=== PATIENT | female | born 1995 | race Caucasian/White ===

== ENCOUNTER 2017-08-31 00:04 | Emergency (ER) | payer OTHER ==
[2017-08-31 00:37] VITALS: BP 119/88; PULSE 92; TEMP 98.9; BMI 21.8
--- NOTE | 2017-08-31 01:25 | PDOC ---
History of Present Illness <Rosalba Yates - Last Filed: 08/31/17 02:20> - General History Source: Patient Exam Limitations: No Limitations - History of Present Illness Initial Comments: 08/31/17 03:25 Patient is a 21 year old female with no significant past medical history who presents to the ED with complaints of increased cough that began 5 days ago. Patient reports feeling slightly feverish as well as gradual dizziness and shortness of breath. She reports experiencing slight chest discomfort, stating when she coughs it reproduces a pain within her left ribs. Patient reports experiencing sore throat, decreased appetite, frontal sinus pressure and 1 episode of diarrhea that occured yesterday afternoon. Denies nausea, vomiting. Denies contact with sick individuals, out of state travelling. Denies dysuria, hematuria, constipation. Denies any other symptoms. Allergies: None Social history: No smoking. No alcohol. No illicit drugs. Surgical history: None PMD: Dr. Duggan <John Robles - Last Filed: 08/31/17 03:25> - General Chief Complaint: Cold Symptoms Stated Complaint: COUGH/DIZZINESS Time Seen by Provider: 08/31/17 00:29 Past History - Suicide/Smoking/Psychosocial Hx Smoking History: Never smoked Have you smoked in the past 12 months: No Information on smoking cessation initiated: No Hx Alcohol Use: No Drug/Substance Use Hx: No <Rosalba Yates - Last Filed: 08/31/17 02:20> <John Robles - Last Filed: 08/31/17 03:25> - Past Medical History Allergies/Adverse Reactions: Allergies Allergy/AdvReac Type Severity Reaction Status Date / Time No Known Allergies Allergy Verified 08/31/17 00:33 Home Medications: Ambulatory Orders Acetaminophen [Tylenol] 650 mg PO PRN 08/31/17 Guaifenesin AC [Robitussin AC] 5 ml PO Q6H PRN #60 ml MDD 60 mL 08/31/17 Review of Systems - Review of Systems Able to Perform ROS?: Yes Comments:: 08/31/17 03:25 GENERAL/CONSTITUTIONAL: No fever or chills. No weakness. HEAD, EYES, EARS, NOSE AND THROAT: +Sore throat. No change in vision. No ear pain or discharge. GASTROINTESTINAL: +Diarrhea. No nausea, vomiting, or constipation. GENITOURINARY: No dysuria, frequency, or change in urination. CARDIOVASCULAR: +chest discomfort. +Sob. RESPIRATORY: +Cough. No wheezing, or hemoptysis. MUSCULOSKELETAL: No joint or muscle swelling or pain. No neck or back pain. SKIN: No rash NEUROLOGIC: No headache, vertigo, loss of consciousness, or change in strength/ sensation. ENDOCRINE: No increased thirst. No abnormal weight change. HEMATOLOGIC/LYMPHATIC: No anemia, easy bleeding, or history of blood clots. ALLERGIC/IMMUNOLOGIC: No hives or skin allergy. <John Robles - Last Filed: 08/31/17 03:25> *Physical Exam - Vital Signs Last Vital Signs Temp Pulse Resp BP Pulse Ox 98.9 F 92 H 20 119/88 98 08/31/17 00:34 08/31/17 00:34 08/31/17 00:34 08/31/17 00:34 08/31/17 00:34 <Rosalba Yates - Last Filed: 08/31/17 02:20> - Vital Signs Last Vital Signs Temp Pulse Resp BP Pulse Ox 98.9 F 92 H 20 119/88 98 08/31/17 00:34 08/31/17 00:34 08/31/17 00:34 08/31/17 00:34 08/31/17 00:34 <John Robles - Last Filed: 08/31/17 03:25> ED Treatment Course - ADDITIONAL ORDERS Additional order review: Laboratory Results 08/31/17 01:35 Urine HCG, Qual Negative - Medications Given in the ED: ED Medications Discontinued Medications Generic Name Dose Route Start Last Admin Trade Name Freq PRN Reason Stop Dose Admin Guaifenesin/Codeine Phosphate 10 ml 08/31/17 02:10 08/31/17 02:23 Robitussin Ac - PO 08/31/17 02:11 10 ml ONCE ONE Administration <John Robles - Last Filed: 08/31/17 03:25> *DC/Admit/Observation/Transfer - Discharge Dispostion Admit: No <Rosalba Yates - Last Filed: 08/31/17 02:20> - Attestations Scribe Attestion: 08/31/17 03:25 Documentation prepared by John Robles, acting as medical auditor for Rosalba Yates MD, /DO. <John Robles - Last Filed: 08/31/17 03:25> Diagnosis at time of Disposition: Cough - Discharge Dispostion Disposition: HOME Condition at time of disposition: Stable - Prescriptions Prescriptions: Guaifenesin AC [Robitussin AC] 5 ml PO Q6H PRN #60 ml MDD 60 mL PRN Reason: Cough - Referrals Referrals: Adrienne Storm MD [Primary Care Provider] - - Patient Instructions Printed Discharge Instructions: DI for Viral Upper Respiratory Infection -- Adult - Post Discharge Activity
[2017-08-31] MEDS ORDERED: guaiFENesin/CODEINE 10 ML UNIT-DOSE CUPS PO ONE (02:10)
[2017-08-31] MEDS ORDERED: guaiFENesin/CODEINE 5 ML UNIT-DOSE CUPS PO ONE (02:22)
== END 2017-08-31 02:31 | disposition home or self-care (01) ==
LOC: JER 00:04
DX: J06.9 Acute upper respiratory infection, unspecified (principal); B97.89 Other viral agents as the cause of diseases classified elsewhere
CPT/HCPCS: 71046-TC-FY; 84703; 99282-25

== ENCOUNTER 2018-06-28 13:17 | Emergency (ER) | payer OTHER ==
[2018-06-28 13:24] VITALS: BP 114/69; PULSE 113; TEMP 98.2; BMI 21.6
[2018-06-28] MEDS ORDERED: predniSONE 20 MG TABLET (UD) PO ONE (13:38)
[2018-06-28] MEDS ORDERED: diphenhydrAMINE HCL 25 MG CAPSULE (FP) PO ONE ×2 (13:38→13:41)
[2018-06-28] MEDS ORDERED: RANITIDINE HCL 150 MG TABLET (FP) PO ONE (13:38)
[2018-06-28] MEDS ORDERED: RANITIDINE HCL 150 MG TABLET (FP) ONE (13:41)
[2018-06-28] MEDS ORDERED: predniSONE 20 MG TABLET (UD) ONE (13:42)
--- NOTE | 2018-06-28 13:50 | PDOC ---
History of Present Illness - General Chief Complaint: Allergic Reaction Stated Complaint: Allergic Reaction Time Seen by Provider: 06/28/18 13:25 History Source: Patient, Parent(s) Exam Limitations: No Limitations Past History - Past Medical History Allergies/Adverse Reactions: Allergies Allergy/AdvReac Type Severity Reaction Status Date / Time No Known Allergies Allergy Verified 06/28/18 13:20 Home Medications: Ambulatory Orders Famotidine [Pepcid] 20 mg PO DAILY #5 tablet 06/28/18 Prednisone [Deltasone] 40 mg PO DAILY #10 tablet 06/28/18 COPD: No - Immunization History Immunization Up to Date: Yes - Suicide/Smoking/Psychosocial Hx Smoking History: Never smoked Have you smoked in the past 12 months: No Information on smoking cessation initiated: No Hx Alcohol Use: No Drug/Substance Use Hx: No Substance Use Type: None *Physical Exam - Vital Signs Last Vital Signs Temp Pulse Resp BP Pulse Ox 98.2 F 113 H 18 114/69 100 06/28/18 13:20 06/28/18 13:20 06/28/18 13:20 06/28/18 13:20 06/28/18 13:20 - Physical Exam HEENT: positive: Pharynx Normal, Other (No angioedema noted) Respiratory/Chest: positive: Lungs Clear, Normal Breath Sounds. negative: Respiratory Distress Cardiovascular: positive: Regular Rhythm Gastrointestinal/Abdominal: positive: Soft. negative: Tender Integumentary: positive: Hives, Rash (Generalized urticarial rash throughout body). negative: Mottled, Petechiae, Swelling, Ecchymosis, Bruising Neurologic: positive: Alert, Normal Mood/Affect Moderate Sedation - Procedure Monitoring Vital Signs: Procedure Monitoring Vital Signs Temperature 98.2 F 06/28/18 13:20 Pulse Rate 113 H 06/28/18 13:20 Respiratory Rate 18 06/28/18 13:20 Blood Pressure 114/69 06/28/18 13:20 O2 Sat by Pulse Oximetry (%) 100 06/28/18 13:20 Medical Decision Making - Medical Decision Making 22 y/o F with no sig pmh presents with diffuse, itchy rash that she broke out into yesterday around 6 PM after her mother gave her a drink consisting of water , honey and black pepper to help with a cough patient was having. Patient's mother had given her Claritin 10 mg yesterday x1, but didn't notice much improvement so brought her to ED. Patient has not taken anything for the allergies today. Denies abd pain, n/v/d. PE consistent with allergic urticaria; no angioedema, lungs clear Plan: Prednisone, Zantac, Benadryl 06/28/18 13:33 On reassessment, patient feeling better stable for d/c 06/28/18 14:01 *DC/Admit/Observation/Transfer Diagnosis at time of Disposition: Allergic urticaria - Discharge Dispostion Disposition: HOME Condition at time of disposition: Improved Decision to Admit order: No - Prescriptions Prescriptions: Famotidine [Pepcid] 20 mg PO DAILY #5 tablet Prednisone [Deltasone] 40 mg PO DAILY #10 tablet - Referrals Referrals: Bony Dawn MD [Primary Care Provider] - 3 days - Patient Instructions Printed Discharge Instructions: DI for Hives Additional Instructions: Thank you for choosing [facility]. It was a pleasure taking care of you. You were seen here for allergic reaction Take Prednisone and Pepcid as prescribed Also take Benadryl 50 mg ever 6 hours as needed to help with itching Follow-up with your PCP in 2-3 days. Return to the Emergency Department if your symptoms worsen or persist or have other concerning symptoms. - Post Discharge Activity
== END 2018-06-28 14:09 | disposition home or self-care (01) ==
LOC: JERFT 13:17
DX: L50.0 Allergic urticaria (principal)
CPT/HCPCS: 99281-25

== ENCOUNTER 2018-11-28 14:43 | Emergency (ER) | payer OTHER ==
[2018-11-28 14:47] VITALS: BP 107/62; PULSE 89; TEMP 98.2; BMI 24.0
--- NOTE | 2018-11-28 15:13 | PDOC ---
History of Present Illness - General Chief Complaint: Ear Problem Stated Complaint: Ear Problem Time Seen by Provider: 11/28/18 14:51 - History of Present Illness Initial Comments: 11/28/18 15:08 23 years old no significant past medical history presents to the ED with clogged right ear decreased hearing from right ear Has been using hydrogen peroxide drops with no significant improvement No fever no chills no headache no neck pain Past History - Past Medical History Allergies/Adverse Reactions: Allergies Allergy/AdvReac Type Severity Reaction Status Date / Time No Known Allergies Allergy Verified 11/28/18 14:47 Home Medications: Ambulatory Orders NK [No Known Home Medication] 11/28/18 COPD: No - Immunization History Immunization Up to Date: Yes - Suicide/Smoking/Psychosocial Hx Smoking History: Never smoked Have you smoked in the past 12 months: No Hx Alcohol Use: No Drug/Substance Use Hx: No Substance Use Type: None Review of Systems - Review of Systems Comments:: 11/28/18 15:20 ROS: A complete review of 10 out of 10 review of systems is taken and is negative apart from what is previously mentioned below and in the HPI. *Physical Exam - Vital Signs Last Vital Signs Temp Pulse Resp BP Pulse Ox 98.2 F 89 18 107/62 100 11/28/18 14:44 11/28/18 14:44 11/28/18 14:44 11/28/18 14:44 11/28/18 14:44 - Physical Exam Comments: 11/28/18 15:20 Vitals: Triage Vital signs reviewed General Appearance: no acute distress, well nourished well developed, Head: Atraumatic, Eyes: Pupils equal reactive round, extraocular movement intact Ears: Both years impacted with cerumen right greater than left Cespedes and Rinne test performed patient able to hear tuning fork with conduction through mastoids bilaterally decreased hearing with tuning fork 1 placed outside of right ear Nose: Nares patent bilaterally;no nasal congestion Throat: Posterior oropharynx without erythema, mucous membranes moist, Extremities: Full range of motion to all extremities, no cyanosis, clubbing, or edema Skin: Warm and dry, no rashes or lesions, no rash, no petechiae Psych: normal mood, normal affect Medical Decision Making - Medical Decision Making 11/28/18 15:22 Decreased hearing in right ear secondary to impacted cerumen We'll recommend D Brox and ENT follow-up manually disimpacted as much as possible in the ED repeat evaluation still with remaining cerumen Findings, the need for follow-up, strict return instructions discussed with patient. *DC/Admit/Observation/Transfer Diagnosis at time of Disposition: Cerumen impaction Qualifiers: Laterality: right Qualified Code(s): H61.21 - Impacted cerumen, right ear - Discharge Dispostion Disposition: HOME Decision to Admit order: No - Referrals Referrals: Bony Dawn MD [Primary Care Provider] - Aidan Espinoza MD [Staff Physician] - - Patient Instructions Printed Discharge Instructions: Cerumen Impaction Additional Instructions: Purchase xlut-avm-aqlvyav Debrox. Use as directed on package. It is very important that you follow-up with on saturday or saturday. Return to the emergency department for any severe worsening symptoms or for any concerns. - Post Discharge Activity
== END 2018-11-28 15:25 | disposition home or self-care (01) ==
LOC: JERFT 14:43
DX: H61.21 Impacted cerumen, right ear (principal)
CPT/HCPCS: 99281-25

== ENCOUNTER 2022-01-12 21:57 | Emergency (ER) | payer OTHER ==
[2022-01-12 22:08] VITALS: BP 102/69; PULSE 81; RESP 18; TEMP 97; BMI 20.2
[2022-01-12] MEDS ORDERED: ACETAMINOPHEN 325 MG TABLET (FP) PO ONE (23:05)
[2022-01-12] MEDS ORDERED: ACETAMINOPHEN 325 MG TABLET (FP) ONE (23:15)
== END 2022-01-13 00:01 | disposition home or self-care (01) ==
LOC: JER 21:57
DX: R07.9 Chest pain, unspecified (principal)
CPT/HCPCS: 84703; 93005; 93010; 99284-25

== ENCOUNTER 2022-03-23 14:57 | Emergency (ER) | payer OTHER ==
[2022-03-23 15:21] VITALS: BP 118/70; PULSE 102; RESP 16; TEMP 98.2; BMI 22.8
[2022-03-23 16:57] LABS: BASO % 0.7 % (0-2.0); EOS % 1.3 % (0-4.5); HEMATOCRIT 38.1 % (32.4-45.2); HEMOGLOBIN 12.6 GM/dL (10.7-15.3); LYMPH % 33.1 % (8-40); MCH 28.2 pg (25.7-33.7); MCHC 33.1 g/dl (32.0-36.0); MEAN CELL VOLUME 85.1 fl (80-96); MEAN PLT VOLUME 8.3 fl (7.5-11.1); MONO % 3.9 % (3.8-10.2); PLATELET COUNT 273 10^3/uL (134-434); RBC 4.47 M/mm3 (3.60-5.2); RDW 15.1 % (11.6-15.6); WHITE BLOOD COUNT 7.7 K/mm3 (4.0-10.0)
[2022-03-23 17:02] LABS: EPI CELLS >36 /uL (0-25.1); HYALINE CASTS 1 /uL (0-3.1); PH,URINE 5.5 (5.0-8.0); URINE APPEARANCE CLOUDY; URINE BILIRUBIN NEGATIVE (NEGATIVE); URINE COLOR YELLOW; URINE GLUCOSE (UA) NEGATIVE (NEGATIVE); URINE KETONE NEGATIVE (NEGATIVE); URINE LEUK ESTERASE 1+ (NEGATIVE); URINE NITRITE NEGATIVE (NEGATIVE); URINE PROTEIN NEGATIVE (NEGATIVE); URINE RBC 4 /uL (0-23.9); URINE UROBILINOGEN 0.2 mg/dL (0.2-1.0); URINE WBC 19 /uL (0-25.8)
[2022-03-23 17:17] LABS: CALCIUM 9.5 mg/dL (8.5-10.1)
[2022-03-23 17:18] LABS: BLOOD UREA NITROGEN 8.5 mg/dL (7-18)
[2022-03-23 17:20] LABS: CREATININE 0.5 mg/dL (0.55-1.3)
[2022-03-23 17:22] LABS: BILIRUBIN,TOTAL 0.2 mg/dL (0.2-1); TOT PROT 7.4 g/dl (6.4-8.2)
== END 2022-03-23 19:25 | disposition home or self-care (01) ==
LOC: JER 14:57 → JERFT 14:57
DX: O20.8 Other hemorrhage in early pregnancy (principal)
CPT/HCPCS: 36415; 76817-TC; 80053; 81003; 84702; 85025; 86850; 86900; 86901; 87086; 99284-25

== ENCOUNTER 2022-03-27 12:37 | Emergency (ER) | payer OTHER ==
[2022-03-27 12:45] VITALS: BP 106/72; PULSE 78; RESP 19; TEMP 98.6; BMI 30.2
== END 2022-03-27 16:46 | disposition home or self-care (01) ==
LOC: JERFT 12:37 → JER 12:37 → JERFT 16:46
DX: O26.851 Spotting complicating pregnancy, first trimester (principal); Z3A.01 Less than 8 weeks gestation of pregnancy
CPT/HCPCS: 36415; 76830-TC; 84702; 99284-25

== ENCOUNTER 2023-03-04 06:33 | Emergency (ER) | payer OTHER ==
[2023-03-04 06:51] VITALS: BMI 25.4
[2023-03-04 07:46] VITALS: RESP 18
[2023-03-04] MEDS ORDERED: ELECTROLYTE-148 SOLN 500 ML IV ONE ×2 (08:00→08:30)
[2023-03-04] MEDS ORDERED: ONDANSETRON 4 MG/2 ML VIAL ONE (09:08)
[2023-03-04] MEDS ORDERED: ONDANSETRON 4 MG/2 ML VIAL IVPB ONE (09:30)
[2023-03-04] MEDS ORDERED: guaiFENesin 200 MG/10 ML 10 ML UNIT-DOSE CUPS PO ONE (10:01)
[2023-03-04 12:30] VITALS: BP 107/58; PULSE 100; TEMP 98.3
[2023-03-20] MEDS ORDERED: FENTANYL CITRATE/PF 50 MCG/ML VIAL ONE (02:04)
[2023-03-20] MEDS ORDERED: BUPIVACAINE HCL/PF 0.25% (2.5MG/ML) 10 ML VIAL ONE (02:05)
[2023-03-20] MEDS ORDERED: LIDO 2%/EPI 1:200000 PRESRVFRE (20 ML SDVIAL) ONE (10:53)
== END 2023-03-04 14:09 | disposition home or self-care (01) ==
LOC: JER 06:33 → JERFT 06:33
PROC: 3E033GC Introduction of Other Therapeutic Substance into Peripheral Vein, Percutaneous Approach (ICD-10-PCS; principal; 2023-03-04)
PROC: 3E033GC Introduction of Other Therapeutic Substance into Peripheral Vein, Percutaneous Approach (ICD-10-PCS; 2023-03-04)
PROC: 3E033GC Introduction of Other Therapeutic Substance into Peripheral Vein, Percutaneous Approach (ICD-10-PCS; 2023-03-04)
PROC: 3E033GC Introduction of Other Therapeutic Substance into Peripheral Vein, Percutaneous Approach (ICD-10-PCS; 2023-03-04)
DX: O26.893 Other specified pregnancy related conditions, third trimester (principal); R05.9 Cough, unspecified; R09.81 Nasal congestion; O21.9 Vomiting of pregnancy, unspecified; O99.513 Diseases of the respiratory system complicating pregnancy, third trimester; J06.9 Acute upper respiratory infection, unspecified; B97.89 Other viral agents as the cause of diseases classified elsewhere; Z20.822 Contact with and (suspected) exposure to COVID-19; Z3A.36 36 weeks gestation of pregnancy
CPT/HCPCS: 0241U-QW; 76815; 99284-25

== ENCOUNTER 2023-03-19 06:30 | Inpatient (IN) | payer OTHER ==
[2023-03-19] MEDS ORDERED: AMPICILLIN - 2 GM in SODIUM CHLORIDE 100 ML IVPB ONE (07:54)
[2023-03-19] MEDS ORDERED: AMPICILLIN SODIUM 2 GM VIAL ONE ×2 (08:22→12:34)
[2023-03-19] MEDS: ELECTROLYTE-148 SOLN 1,000 ML IV SCH ×3 (08:40→19:45)
[2023-03-19 09:16] LABS: BASO % 0.8 % (0-2.0); EOS % 0.3 % (0-4.5); HEMATOCRIT 34.9 % (32.4-45.2); HEMOGLOBIN 11.8 GM/dL (10.7-15.3); LYMPH % 46.9 % (8-40); MCH 28.3 pg (25.7-33.7); MCHC 33.9 g/dl (32.0-36.0); MEAN CELL VOLUME 83.4 fl (80-96); MEAN PLT VOLUME 9.2 fl (7.5-11.1); MONO % 3.9 % (3.8-10.2); NEUT % 48.1 % (42.8-82.8); PLATELET COUNT 240 10^3/uL (134-434); RBC 4.19 M/mm3 (3.60-5.2); RDW 14.1 % (11.6-15.6); WHITE BLOOD COUNT 11.1 K/mm3 (4.0-10.0)
[2023-03-19 09:23] LABS: INR 0.97 (0.83-1.09); PROTHROMBIN TIME (PATIENT) 11.3 SEC (9.7-13.0)
[2023-03-19 09:26] LABS: ACTIVATED PTT 30.4 SECONDS (25.2-36.5)
[2023-03-19 09:33] VITALS: BMI 25.4
[2023-03-19 09:41] LABS: POTASSIUM 4.1 mmol/L (3.5-5.1)
[2023-03-19 09:42] LABS: CALCIUM 8.7 mg/dL (8.5-10.1)
[2023-03-19 09:43] LABS: BLOOD UREA NITROGEN 8.7 mg/dL (7-18)
[2023-03-19 09:46] LABS: CREATININE 0.7 mg/dL (0.55-1.3)
[2023-03-19] MEDS ORDERED: FENTANYL/BUPIVACAINE/NS/PF - PCEA - 50 ML DISP.SYRIN EP ONE ×3 (10:16→19:19)
[2023-03-19] MEDS: FENTANYL/BUPIVACAINE/NS/PF - PCEA - 50 ML DISP.SYRIN EP SCH ×3 (10:45→19:30)
[2023-03-19] MEDS ORDERED: NALOXONE HCL 0.4 MG/ML VIAL IVPUSH PRN (11:07)
[2023-03-19] MEDS ORDERED: AMPICILLIN SODIUM 1 GM VIAL ONE ×4 (12:39→23:53)
[2023-03-19] MEDS: AMPICILLIN - 1 GM in SODIUM CHLORIDE 100 ML IVPB SCH ×3 (12:45→19:50)
[2023-03-19] MEDS: OXYTOCIN 30 UNITS in 0.9% NS 30 UNIT/500 ML INFUS.BAG IVPB SCH (13:18)
[2023-03-19 13:45] LABS: POC NITRAZINE POS
[2023-03-19 13:46] LABS: POC NITRAZINE POS
[2023-03-19] MEDS ORDERED: OXYTOCIN 20 UNITS in 0.9% NS 20 UNIT/1,000 ML INFUS.BAG IV ONE (19:29)
[2023-03-19] MEDS ORDERED: ONDANSETRON 4 MG/2 ML VIAL ONE (23:53)
[2023-03-20] MEDS ORDERED: FENTANYL/BUPIVACAINE/NS/PF - PCEA - 50 ML DISP.SYRIN EP ONE ×4 (00:19→09:31)
[2023-03-20] MEDS ORDERED: ONDANSETRON 4 MG/2 ML VIAL IVPUSH PRN (00:35)
[2023-03-20] MEDS ORDERED: AMPICILLIN SODIUM 1 GM VIAL ONE ×2 (04:38→08:57)
[2023-03-20] MEDS: ELECTROLYTE-148 SOLN 1,000 ML IV SCH ×2 (04:40→14:27)
[2023-03-20] MEDS: AMPICILLIN - 1 GM in SODIUM CHLORIDE 100 ML IVPB SCH ×4 (04:40→14:27)
[2023-03-20] MEDS: FENTANYL/BUPIVACAINE/NS/PF - PCEA - 50 ML DISP.SYRIN EP SCH ×4 (05:30→13:50)
[2023-03-20] MEDS ORDERED: CITRIC ACID/SODIUM CITRATE 30 ML UNIT-DOSE CUP PO ONE (10:30)
[2023-03-20] MEDS ORDERED: IBUPROFEN 800 MG/8 ML IJ IVPB PRN (10:34)
[2023-03-20] MEDS ORDERED: ACETAMINOPHEN 325 MG TABLET (FP) PO PRN (10:34)
[2023-03-20] MEDS ORDERED: FENTANYL CITRATE/PF 50 MCG/ML VIAL ONE (11:29)
[2023-03-20] MEDS ORDERED: ONDANSETRON 4 MG/2 ML VIAL ONE (11:32)
[2023-03-20] MEDS ORDERED: DEXAMETHASONE SOD PHOSPHATE 4 MG/1 ML VIAL ONE (11:32)
[2023-03-20] MEDS ORDERED: METOCLOPRAMIDE HCL INJECTION 10 MG/2 ML VIAL ONE (11:32)
[2023-03-20] MEDS ORDERED: ceFAZolin SODIUM 1 GM VIAL ONE ×2 (11:33)
[2023-03-20] MEDS ORDERED: morphine SULFATE/PF 1 MG/2 ML (2cc Syringe - QUVA) ONE (11:33)
[2023-03-20] MEDS ORDERED: morphine SULFATE/PF 1 MG/2 ML (2cc Syringe - QUVA) EP ONE (12:18)
[2023-03-20] MEDS ORDERED: OXYTOCIN 20 UNITS in 0.9% NS 20 UNIT/1,000 ML INFUS.BAG IV ONE (12:18)
[2023-03-20] MEDS: OXYTOCIN 20 UNITS in 0.9% NS 20 UNIT/1,000 ML INFUS.BAG IV SCH ×2 (12:23→20:16)
[2023-03-20] MEDS: OXYTOCIN 30 UNITS in 0.9% NS 30 UNIT/500 ML INFUS.BAG IVPB SCH (13:53)
[2023-03-20] MEDS ORDERED: METHYLERGONOVINE MALEATE 0.2 MG/1 ML AMP IM ONE (14:01)
[2023-03-21] MEDS: oxyCODONE HCL 5 MG TABLET PO PRN ×2 (08:04→18:20)
[2023-03-21 08:43] LABS: BASO % 0.3 % (0-2.0); EOS % 0.4 % (0-4.5); HEMATOCRIT 28.6 % (32.4-45.2); HEMOGLOBIN 9.6 GM/dL (10.7-15.3); LYMPH % 23.1 % (8-40); MCHC 33.6 g/dl (32.0-36.0); MEAN CELL VOLUME 83.3 fl (80-96); MEAN PLT VOLUME 8.7 fl (7.5-11.1); MONO % 4.2 % (3.8-10.2); PLATELET COUNT 183 10^3/uL (134-434); RBC 3.44 M/mm3 (3.60-5.2); RDW 14.6 % (11.6-15.6); WHITE BLOOD COUNT 13.7 K/mm3 (4.0-10.0)
[2023-03-21] MEDS ORDERED: DIPHTH,PERTUSS(ACELL),TET 0.5 ML DISP.SYRIN IM ONE (10:00)
[2023-03-21] MEDS ORDERED: BISACODYL 10 MG SUPP.RECT RC PRN (10:34)
[2023-03-21] MEDS: SIMETHICONE 80 MG TAB.CHEW (FP) PO PRN (22:18)
[2023-03-21] MEDS: IBUPROFEN 600 MG TABLET (FP) PO PRN (22:19)
[2023-03-22] MEDS: IBUPROFEN 600 MG TABLET (FP) PO PRN (19:46)
[2023-03-22] MEDS: SIMETHICONE 80 MG TAB.CHEW (FP) PO PRN (19:47)
[2023-03-23 07:21] LABS: BASO % 0.8 % (0-2.0); EOS % 1.4 % (0-4.5); HEMATOCRIT 27.6 % (32.4-45.2); HEMOGLOBIN 9.1 GM/dL (10.7-15.3); LYMPH % 41.3 % (8-40); MCH 27.8 pg (25.7-33.7); MCHC 32.8 g/dl (32.0-36.0); MEAN CELL VOLUME 84.7 fl (80-96); MONO % 3.9 % (3.8-10.2); NEUT % 52.6 % (42.8-82.8); PLATELET COUNT 200 10^3/uL (134-434); RBC 3.26 M/mm3 (3.60-5.2); RDW 13.7 % (11.6-15.6); WHITE BLOOD COUNT 11.2 K/mm3 (4.0-10.0)
[2023-03-23 11:34] VITALS: BP 100/61; PULSE 86; RESP 17; TEMP 97.5
== END 2023-03-23 13:30 | disposition home or self-care (01) | DRG 540 ==
LOC: JDEL 06:30 → JLDR 07:45 → J3W 03-20 15:25
PROVIDERS: ADMIT Student in an Organized Health Care Education/Training Program; ATTEND Student in an Organized Health Care Education/Training Program
PROC: 10D00Z1 Extraction of Products of Conception, Low, Open Approach (ICD-10-PCS; principal; 2023-03-20)
DX: O62.0 Primary inadequate contractions (principal); O63.9 Long labor, unspecified; Z3A.38 38 weeks gestation of pregnancy; Z37.0 Single live birth
CPT/HCPCS: 36415; 59025; 80048; 83986-QW; 85025; 85610; 85730; 86780; 86850; 86900; 86901; 88307-TC; 90715

== ENCOUNTER 2023-08-27 15:35 | Emergency (ER) | payer OTHER ==
[2023-08-27 15:40] VITALS: RESP 20; BMI 33.5
[2023-08-27] MEDS ORDERED: ACETAMINOPHEN 500 MG TABLET (FP) ONE (16:51)
[2023-08-27] MEDS: ACETAMINOPHEN 325 MG TABLET (FP) PO ONE (16:57)
[2023-08-27 18:06] VITALS: BP 96/66; PULSE 108; TEMP 99
== END 2023-08-27 18:07 | disposition home or self-care (01) ==
LOC: JERFT 15:35
DX: R50.9 Fever, unspecified (principal); R11.10 Vomiting, unspecified; J10.1 Influenza due to other identified influenza virus with other respiratory manifestations; R05.9 Cough, unspecified; R52 Pain, unspecified; Z20.822 Contact with and (suspected) exposure to COVID-19
CPT/HCPCS: 0241U-QW; 99283-25

== ENCOUNTER 2023-11-20 13:25 | Observation (INO) | payer OTHER ==
[2023-11-20 13:31] VITALS: BMI 22.6
[2023-11-20 15:04] LABS: BASO % 1.2 % (0-2.0); EOS % 1.3 % (0-4.5); HEMOGLOBIN 10.7 GM/dL (10.7-15.3); LYMPH % 24.1 % (8-40); MCH 28.6 pg (25.7-33.7); MCHC 33.5 g/dl (32.0-36.0); MEAN CELL VOLUME 85.5 fl (80-96); MEAN PLT VOLUME 8.5 fl (7.5-11.1); MONO % 4.9 % (3.8-10.2); NEUT % 68.5 % (42.8-82.8); PLATELET COUNT 315 10^3/uL (134-434); RBC 3.74 M/mm3 (3.60-5.2); RDW 14.1 % (11.6-15.6); WHITE BLOOD COUNT 10.4 K/mm3 (4.0-10.0)
[2023-11-20 15:29] LABS: POTASSIUM 4.3 mmol/L (3.5-5.1)
[2023-11-20 15:31] LABS: CALCIUM 8.9 mg/dL (8.5-10.1)
[2023-11-20 15:32] LABS: ALBUMIN 2.8 g/dl (3.4-5.0); BLOOD UREA NITROGEN 10.4 mg/dL (7-18)
[2023-11-20 15:35] LABS: CREATININE 0.5 mg/dL (0.55-1.3)
[2023-11-20 15:37] LABS: BILIRUBIN,TOTAL 0.2 mg/dL (0.2-1); TOT PROT 6.6 g/dl (6.4-8.2)
[2023-11-20] MEDS ORDERED: ONDANSETRON 4 MG/2 ML VIAL ONE (17:16)
[2023-11-20] MEDS: ONDANSETRON 4 MG/2 ML VIAL IVPUSH ONE (17:26)
[2023-11-20] MEDS: DEXTROSE 5%-0.45% SALINE 1,000 ML IV SCH (20:21)
[2023-11-21] MEDS ORDERED: guaiFENesin 200 MG/10 ML 10 ML UNIT-DOSE CUPS PO PRN (00:06)
[2023-11-21] MEDS: MINERAL OIL ENEMA 133 ML ENEMA RC ONE ×2 (00:27→05:02)
[2023-11-21] MEDS ORDERED: MAGNESIUM CITRATE 300 ML BOTTLE ONE (00:31)
[2023-11-21] MEDS: MAGNESIUM CITRATE 300 ML BOTTLE PO ONE (00:41)
[2023-11-21 00:47] LABS: EPI CELLS >36 /uL (0-25.1); HYALINE CASTS 31 /uL (0-3.1); PH,URINE 6.5 (5.0-8.0); URINE APPEARANCE TURBID; URINE BACTERIA 4154 /uL (0-1359); URINE BILIRUBIN NEGATIVE (NEGATIVE); URINE COLOR DK YELLOW; URINE GLUCOSE (UA) NEGATIVE (NEGATIVE); URINE KETONE 2+ (NEGATIVE); URINE LEUK ESTERASE 3+ (NEGATIVE); URINE NITRITE NEGATIVE (NEGATIVE); URINE PROTEIN 1+ (NEGATIVE); URINE RBC 13 /uL (0-23.9); URINE WBC 476 /uL (0-25.8)
[2023-11-21 00:52] LABS: COCAINE, UR NEGATIVE (NEGATIVE); METHADONE, UR NEGATIVE (NEGATIVE); URINE AMPHETAMINES NEGATIVE (NEGATIVE); URINE BENZODIAZEPINES NEGATIVE (NEGATIVE)
[2023-11-21 00:53] LABS: PHENCYCLIDINE,URINE NEGATIVE (NEGATIVE); URINE BARBITURATES NEGATIVE (NEGATIVE)
[2023-11-21 00:54] LABS: OPIATES, URI NEGATIVE (NEGATIVE)
[2023-11-21] MEDS: PHENYLEPHRINE HCL/COCOA BUTTER 1 EACH SUPP.RECT RC ONE (01:08)
[2023-11-21] MEDS ORDERED: POLYETHYLENE GLYCOL (HEALTHYLAX) 3350 17 GM PACKET ONE ×3 (01:13→22:28)
[2023-11-21] MEDS: POLYETHYLENE GLYCOL (HEALTHYLAX) 3350 17 GM PACKET PO ONE (01:20)
[2023-11-21] MEDS: SODIUM CHLORIDE 1,000 ML IV SCH (01:20)
[2023-11-21] MEDS ORDERED: CEFTRIAXONE 1 GM/50 ML BAG ONE (04:52)
[2023-11-21] MEDS: CEFTRIAXONE 1 GM in DEXTROSE 5%-WATER - 50 ML IVPB ONE (05:02)
[2023-11-21] MEDS ORDERED: LEVALBUTEROL HCL 0.31 MG/3 ML VIAL.NEB IH ONE ×2 (06:43→08:19)
[2023-11-21] MEDS ORDERED: methylPREDNISolone NA SUCC 40 MG/1 ML VIAL ONE (06:43)
[2023-11-21] MEDS: methylPREDNISolone NA SUCC 40 MG/1 ML VIAL IVPUSH ONE (06:52)
[2023-11-21] MEDS: LEVALBUTEROL HCL 0.31 MG/3 ML VIAL.NEB IH ONE (06:53)
[2023-11-21 07:21] LABS: HEMATOCRIT 27.1 % (32.4-45.2); HEMOGLOBIN 9.1 GM/dL (10.7-15.3); MCH 28.9 pg (25.7-33.7); MCHC 33.4 g/dl (32.0-36.0); MEAN CELL VOLUME 86.5 fl (80-96); MEAN PLT VOLUME 8.7 fl (7.5-11.1); PLATELET COUNT 268 10^3/uL (134-434); RBC 3.13 M/mm3 (3.60-5.2); RDW 13.7 % (11.6-15.6); WHITE BLOOD COUNT 9.8 K/mm3 (4.0-10.0)
[2023-11-21 07:29] LABS: POTASSIUM 3.5 mmol/L (3.5-5.1)
[2023-11-21 07:31] LABS: BLOOD UREA NITROGEN 9.1 mg/dL (7-18); CALCIUM 8.1 mg/dL (8.5-10.1); MAGNESIUM 1.8 mg/dL (1.8-2.4)
[2023-11-21 07:34] LABS: PHOSPHOROUS 3.5 mg/dL (2.5-4.9)
[2023-11-21 07:35] LABS: CREATININE 0.5 mg/dL (0.55-1.3)
[2023-11-21] MEDS: LEVALBUTEROL HCL 0.31 MG/3 ML VIAL.NEB IH SCH (08:20)
[2023-11-21] MEDS: MAG HYDROX/AL HYDROX/SIMETH 30 ML UNIT-DOSE CUP PO ONE (09:28)
[2023-11-21] MEDS: FAMOTIDINE 20 MG/50 ML IVPB 20 MG/50 ML MG IVPB ONE (09:28)
[2023-11-21] MEDS ORDERED: FAMOTIDINE 20 MG/50 ML IVPB 20 MG/50 ML MG IVPB ONE (09:28)
[2023-11-21] MEDS ORDERED: MAG HYDROX/AL HYDROX/SIMETH 30 ML UNIT-DOSE CUP ONE (09:28)
[2023-11-21] MEDS ORDERED: ACETAMINOPHEN INJECTION 100 ML IVPB ONE ×2 (09:46→21:45)
[2023-11-21] MEDS: ACETAMINOPHEN 1000 MG/100 ML BAG IVPB PRN (09:46)
[2023-11-21] MEDS ORDERED: FOLIC ACID 1 MG TABLET (FP) ONE (11:23)
[2023-11-21] MEDS: FOLIC ACID 1 MG TABLET (FP) PO SCH (11:26)
[2023-11-21] MEDS: POLYETHYLENE GLYCOL (HEALTHYLAX) 3350 17 GM PACKET PO SCH (11:27)
[2023-11-21] MEDS: PRENATAL VITAMINS W/ FOLIC ACID TABLET (FP) PO SCH (11:27)
[2023-11-21] MEDS: PHENYLEPHRINE HCL/COCOA BUTTER 1 EACH SUPP.RECT RC SCH (12:51)
[2023-11-21] MEDS ORDERED: HYDROCORTISONE 2.5% TOPICAL CREAM 30 GM TUBE PR SCH (13:00)
[2023-11-21] MEDS: methylPREDNISolone NA SUCC 40 MG/1 ML VIAL IVPUSH SCH (14:50)
[2023-11-21] MEDS ORDERED: PANTOPRAZOLE SODIUM 40 MG VIAL ONE (15:05)
[2023-11-21] MEDS: PANTOPRAZOLE SODIUM 40 MG VIAL IVPUSH SCH (15:05)
[2023-11-21] MEDS: PANTOPRAZOLE 20 MG TABLET PO SCH (15:23)
[2023-11-21] MEDS ORDERED: ONDANSETRON 4 MG/2 ML VIAL ONE (21:45)
[2023-11-21] MEDS: ONDANSETRON 4 MG/2 ML VIAL IVPUSH PRN (21:50)
[2023-11-22] MEDS ORDERED: ONDANSETRON *ODT* 4 MG TABLET SL PRN (10:07)
[2023-11-22] MEDS ORDERED: ONDANSETRON 4 MG/2 ML VIAL IVPUSH PRN (10:08)
[2023-11-22] MEDS: CEFTRIAXONE 1 GM in DEXTROSE 5%-WATER - 50 ML IVPB SCH (10:19)
[2023-11-22] MEDS ORDERED: CALCIUM CARBONATE 650 MG TABLET PO PRN (12:00)
[2023-11-22] MEDS ORDERED: HYDROCORTISONE ACETATE 25 MG/SUPP.RECT RC PRN ×2 (13:10→13:53)
[2023-11-22] MEDS: HYDROCORTISONE 2.5% TOPICAL CREAM 30 GM TUBE RC SCH (14:06)
[2023-11-22 15:43] LABS: HEMATOCRIT 24.8 % (32.4-45.2); MCH 27.7 pg (25.7-33.7); MCHC 32.4 g/dl (32.0-36.0); MEAN CELL VOLUME 85.5 fl (80-96); MEAN PLT VOLUME 8.6 fl (7.5-11.1); PLATELET COUNT 261 10^3/uL (134-434); RDW 13.9 % (11.6-15.6); WHITE BLOOD COUNT 9.6 K/mm3 (4.0-10.0)
[2023-11-22 16:09] LABS: POTASSIUM 3.9 mmol/L (3.5-5.1)
[2023-11-22 16:10] LABS: CALCIUM 8.2 mg/dL (8.5-10.1)
[2023-11-22 16:11] LABS: BLOOD UREA NITROGEN 3.8 mg/dL (7-18)
[2023-11-22 16:14] LABS: CREATININE 0.5 mg/dL (0.55-1.3)
[2023-11-22] MEDS ORDERED: WITCH HAZEL 50% (TUCKS) 40 PAD/JAR PAD TP PRN (17:02)
[2023-11-22] MEDS: HYDROCORTISONE 1% TOPICAL CREAM 30 GM TUBE TP PRN (17:24)
[2023-11-23 08:55] LABS: POTASSIUM 3.8 mmol/L (3.5-5.1)
[2023-11-23 08:59] LABS: CALCIUM 7.9 mg/dL (8.5-10.1)
[2023-11-23 09:03] LABS: BASO % 0.4 % (0-2.0); CREATININE 0.4 mg/dL (0.55-1.3); EOS % 1.8 % (0-4.5); HEMATOCRIT 23.8 % (32.4-45.2); HEMOGLOBIN 7.9 GM/dL (10.7-15.3); LYMPH % 28.8 % (8-40); MCH 28.4 pg (25.7-33.7); MCHC 33.3 g/dl (32.0-36.0); MEAN CELL VOLUME 85.2 fl (80-96); MEAN PLT VOLUME 8.3 fl (7.5-11.1); MONO % 4.5 % (3.8-10.2); NEUT % 64.5 % (42.8-82.8); PLATELET COUNT 252 10^3/uL (134-434); RBC 2.79 M/mm3 (3.60-5.2); RDW 13.9 % (11.6-15.6); WHITE BLOOD COUNT 8.1 K/mm3 (4.0-10.0)
[2023-11-23] MEDS: ALBUTEROL SO4 2.5/IPRATROPIUM 0.5 INH SOL 3 ML VIAL.NEB. NEB SCH (12:05)
[2023-11-23 15:45] LABS: HEMATOCRIT 26.2 % (32.4-45.2); HEMOGLOBIN 8.7 GM/dL (10.7-15.3); MCH 28.3 pg (25.7-33.7); MCHC 33.3 g/dl (32.0-36.0); MEAN CELL VOLUME 84.9 fl (80-96); MEAN PLT VOLUME 8.9 fl (7.5-11.1); PLATELET COUNT 290 10^3/uL (134-434); RBC 3.09 M/mm3 (3.60-5.2); RDW 13.4 % (11.6-15.6); WHITE BLOOD COUNT 11.4 K/mm3 (4.0-10.0)
[2023-11-23 15:46] VITALS: RESP 18
[2023-11-23 18:29] VITALS: BP 99/57; PULSE 121; TEMP 99
[2023-11-25 23:10] LABS: BORDETELLA PERTUSSIS IG-M <1.0 index (0.0-0.9); PERTUSSIS TOXIN IGA <1.0 index (0.0-0.9); PERTUSSIS TOXIN IGG 1.51 index (0.00-0.94)
== END 2023-11-23 19:42 | disposition home or self-care (01) ==
LOC: JER 13:25 → JERBED 20:46 → J7W 11-22 00:03
PROVIDERS: ADMIT Internal Medicine; ATTEND Nurse Practitioner
PROC: 3E033NZ Introduction of Analgesics, Hypnotics, Sedatives into Peripheral Vein, Percutaneous Approach (ICD-10-PCS; principal; 2023-11-20)
PROC: 3E0F7GC Introduction of Other Therapeutic Substance into Respiratory Tract, Via Natural or Artificial Opening (ICD-10-PCS; 2023-11-20)
PROC: 3E03329 Introduction of Other Anti-infective into Peripheral Vein, Percutaneous Approach (ICD-10-PCS; 2023-11-20)
PROC: 3E033GC Introduction of Other Therapeutic Substance into Peripheral Vein, Percutaneous Approach (ICD-10-PCS; 2023-11-20)
DX: O21.8 Other vomiting complicating pregnancy (principal); N39.0 Urinary tract infection, site not specified; O23.42 Unspecified infection of urinary tract in pregnancy, second trimester; O22.42 Hemorrhoids in pregnancy, second trimester; Z3A.20 20 weeks gestation of pregnancy; J30.9 Allergic rhinitis, unspecified; K62.5 Hemorrhage of anus and rectum; K59.00 Constipation, unspecified
CPT/HCPCS: 0241U-QW; 36415; 71046-TC-FY; 76705-TC; 76815-TC; 80048; 80053; 80307; 81003; 83735; 84100; 85025; 85027; 86615; 87070; 87077; 87086; 87205; 93005; 93010; 94640; 96365; 96366; 96367; 96375; 96376; 99285-25; G0378; J0131

== ENCOUNTER 2023-12-13 19:59 | Emergency (ER) | payer OTHER ==
[2023-12-13 20:12] VITALS: BP 104/62; PULSE 117; RESP 26; TEMP 98.4; BMI 24.4
[2023-12-13] MEDS: LACTATED RINGERS SOLUTION 1000 ML INFUS.BAG IV ONE (21:21)
[2023-12-13 21:27] LABS: BASO % 0.7 % (0-2.0); EOS % 1.4 % (0-4.5); HEMATOCRIT 25.6 % (32.4-45.2); HEMOGLOBIN 8.4 GM/dL (10.7-15.3); LYMPH % 29.7 % (8-40); MCH 27.4 pg (25.7-33.7); MCHC 32.8 g/dl (32.0-36.0); MEAN CELL VOLUME 83.5 fl (80-96); MEAN PLT VOLUME 9.4 fl (7.5-11.1); MONO % 5.7 % (3.8-10.2); NEUT % 62.5 % (42.8-82.8); PLATELET COUNT 260 10^3/uL (134-434); RBC 3.06 M/mm3 (3.60-5.2); RDW 13.3 % (11.6-15.6); WHITE BLOOD COUNT 10.2 K/mm3 (4.0-10.0)
[2023-12-13 22:05] LABS: CHLORIDE 106 mmol/L (98-107); POTASSIUM 3.8 mmol/L (3.5-5.1); SODIUM 136 mmol/L (136-145)
[2023-12-13 22:07] LABS: ALBUMIN 2.6 g/dl (3.4-5.0); ANION GAP 8 mmol/L (4-13); BLOOD UREA NITROGEN 10.8 mg/dL (7-18); CALCIUM 8.5 mg/dL (8.5-10.1); CO2 23 mmol/L (21-32); GLUCOSE,RANDOM 71 mg/dL (74-106)
[2023-12-13 22:10] LABS: CREATININE 0.5 mg/dL (0.55-1.3); SGOT/AST 15 U/L (15-37); SGPT/ALT 11 U/L (13-61)
[2023-12-13 22:12] LABS: BILIRUBIN,TOTAL < 0.1 mg/dL (0.2-1)
[2023-12-13 22:13] LABS: ALK PHOS 90 U/L (45-117)
[2023-12-13 23:18] LABS: EPI CELLS >36 /uL (0-25.1); HYALINE CASTS 3 /uL (0-3.1); URINE APPEARANCE CLOUDY; URINE BACTERIA 699 /uL (0-1359); URINE BILIRUBIN NEGATIVE (NEGATIVE); URINE COLOR YELLOW; URINE GLUCOSE (UA) NEGATIVE (NEGATIVE); URINE KETONE 2+ (NEGATIVE); URINE LEUK ESTERASE 2+ (NEGATIVE); URINE NITRITE NEGATIVE (NEGATIVE); URINE PROTEIN TRACE (NEGATIVE); URINE RBC 8 /uL (0-23.9); URINE UROBILINOGEN 0.2 mg/dL (0.2-1.0); URINE WBC 228 /uL (0-25.8)
[2023-12-13] MEDS ORDERED: CEFTRIAXONE 1 GM/50 ML BAG ONE (23:41)
[2023-12-13] MEDS: CEFTRIAXONE 1 GM in DEXTROSE 5%-WATER - 50 ML IVPB ONE (23:47)
[2023-12-13] MEDS: SODIUM CHLORIDE 500 ML IV STA (23:48)
== END 2023-12-14 02:03 | disposition home or self-care (01) ==
LOC: JER 19:59
PROC: 3E0333Z Introduction of Anti-inflammatory into Peripheral Vein, Percutaneous Approach (ICD-10-PCS; principal; 2023-12-13)
PROC: 3E0337Z Introduction of Electrolytic and Water Balance Substance into Peripheral Vein, Percutaneous Approach (ICD-10-PCS; 2023-12-13)
DX: O23.41 Unspecified infection of urinary tract in pregnancy, first trimester (principal); O21.9 Vomiting of pregnancy, unspecified; Z3A.01 Less than 8 weeks gestation of pregnancy; Z20.822 Contact with and (suspected) exposure to COVID-19
CPT/HCPCS: 0241U-QW; 36415; 80053; 81003; 85025; 99284-25

== ENCOUNTER 2023-12-19 22:00 | Emergency (ER) | payer OTHER ==
[2023-12-19 22:13] VITALS: BMI 25.4
[2023-12-20] MEDS ORDERED: ACETAMINOPHEN 325 MG TABLET (FP) ONE (00:13)
[2023-12-20] MEDS: ACETAMINOPHEN 500 MG TABLET (FP) PO ONE (00:17)
[2023-12-20 00:40] LABS: EOS % 1.6 % (0-4.5); HEMATOCRIT 24.5 % (32.4-45.2); HEMOGLOBIN 8.1 GM/dL (10.7-15.3); LYMPH % 29.7 % (8-40); MCH 27.8 pg (25.7-33.7); MCHC 32.9 g/dl (32.0-36.0); MEAN CELL VOLUME 84.4 fl (80-96); MEAN PLT VOLUME 9.2 fl (7.5-11.1); MONO % 4.5 % (3.8-10.2); NEUT % 63.2 % (42.8-82.8); PLATELET COUNT 261 10^3/uL (134-434); RDW 13.9 % (11.6-15.6); WHITE BLOOD COUNT 10.3 K/mm3 (4.0-10.0)
[2023-12-20 01:20] LABS: POTASSIUM 3.9 mmol/L (3.5-5.1)
[2023-12-20 01:22] LABS: ALBUMIN 2.6 g/dl (3.4-5.0); BLOOD UREA NITROGEN 8.5 mg/dL (7-18); CALCIUM 8.6 mg/dL (8.5-10.1)
[2023-12-20 01:25] LABS: CREATININE 0.5 mg/dL (0.55-1.3)
[2023-12-20 01:26] LABS: BILIRUBIN,TOTAL 0.2 mg/dL (0.2-1); TOT PROT 5.8 g/dl (6.4-8.2)
[2023-12-20 01:30] LABS: EPI CELLS >36 /uL (0-25.1); HYALINE CASTS 2 /uL (0-3.1); PH,URINE 6.5 (5.0-8.0); URINE APPEARANCE CLEAR; URINE BACTERIA 864 /uL (0-1359); URINE BILIRUBIN NEGATIVE (NEGATIVE); URINE COLOR YELLOW; URINE GLUCOSE (UA) NEGATIVE (NEGATIVE); URINE KETONE TRACE (NEGATIVE); URINE LEUK ESTERASE TRACE (NEGATIVE); URINE NITRITE NEGATIVE (NEGATIVE); URINE PROTEIN TRACE (NEGATIVE); URINE RBC 9 /uL (0-23.9); URINE WBC 24 /uL (0-25.8)
[2023-12-20] MEDS: METOCLOPRAMIDE HCL INJECTION 10 MG/2 ML VIAL IVPUSH ONE (04:16)
[2023-12-20 05:37] VITALS: BP 116/76; PULSE 82; RESP 17; TEMP 98.8
== END 2023-12-20 05:48 | disposition home or self-care (01) ==
LOC: JER 22:00
PROC: 3E033GC Introduction of Other Therapeutic Substance into Peripheral Vein, Percutaneous Approach (ICD-10-PCS; principal; 2023-12-20)
DX: O26.892 Other specified pregnancy related conditions, second trimester (principal); R10.30 Lower abdominal pain, unspecified; O99.891 Other specified diseases and conditions complicating pregnancy; R06.02 Shortness of breath; R07.81 Pleurodynia; R05.9 Cough, unspecified; R30.0 Dysuria; O21.9 Vomiting of pregnancy, unspecified; Z3A.00 Weeks of gestation of pregnancy not specified
CPT/HCPCS: 36415; 71046-TC-FY; 80053; 81003; 83690; 84484; 85025; 85379; 87086; 93005; 93010; 99284-25

== ENCOUNTER 2023-12-30 14:57 | Observation (INO) | payer OTHER ==
[2023-12-30 16:18] LABS: BASO % 0.5 % (0-2.0); EOS % 0.3 % (0-4.5); HEMATOCRIT 25.1 % (32.4-45.2); HEMOGLOBIN 8.2 GM/dL (10.7-15.3); LYMPH % 25.5 % (8-40); MCH 26.7 pg (25.7-33.7); MCHC 32.7 g/dl (32.0-36.0); MEAN CELL VOLUME 81.6 fl (80-96); MEAN PLT VOLUME 8.9 fl (7.5-11.1); MONO % 4.7 % (3.8-10.2); PLATELET COUNT 309 10^3/uL (134-434); RBC 3.07 M/mm3 (3.60-5.2); RDW 13.9 % (11.6-15.6); WHITE BLOOD COUNT 8.9 K/mm3 (4.0-10.0)
[2023-12-30 16:25] LABS: EPI CELLS >36 /uL (0-25.1); HYALINE CASTS 5 /uL (0-3.1); URINE APPEARANCE TURBID; URINE BACTERIA >9,000 /uL (0-1359); URINE BILIRUBIN NEGATIVE (NEGATIVE); URINE COLOR YELLOW; URINE GLUCOSE (UA) NEGATIVE (NEGATIVE); URINE KETONE NEGATIVE (NEGATIVE); URINE LEUK ESTERASE 2+ (NEGATIVE); URINE NITRITE NEGATIVE (NEGATIVE); URINE PROTEIN 1+ (NEGATIVE); URINE RBC 30 /uL (0-23.9); URINE WBC 566 /uL (0-25.8)
[2023-12-30 16:36] LABS: POTASSIUM 4.1 mmol/L (3.5-5.1)
[2023-12-30 16:40] LABS: ALBUMIN 2.6 g/dl (3.4-5.0); CALCIUM 8.7 mg/dL (8.5-10.1); MAGNESIUM 2.1 mg/dL (1.8-2.4)
[2023-12-30 16:43] LABS: CREATININE 0.5 mg/dL (0.55-1.3); PHOSPHOROUS 2.8 mg/dL (2.5-4.9)
[2023-12-30 16:45] LABS: BILIRUBIN,TOTAL 0.2 mg/dL (0.2-1); TOT PROT 6.2 g/dl (6.4-8.2)
[2023-12-30] MEDS: CEFTRIAXONE 1 GM in DEXTROSE 5%-WATER - 100 ML IVPB ONE (18:01)
[2023-12-30] MEDS: LACTATED RINGERS SOLUTION 1,000 ML/1,000 ML INFUS.BAG IV SCH (21:23)
[2023-12-31] MEDS: SODIUM CHLORIDE 1,000 ML IV SCH (02:15)
[2023-12-31] MEDS ORDERED: PROCHLORPERAZINE MALEATE 5 MG TABLET PO PRN (08:58)
[2023-12-31 09:04] LABS: HEMATOCRIT 21.8 % (32.4-45.2); HEMOGLOBIN 7.3 GM/dL (10.7-15.3); MCH 27.4 pg (25.7-33.7); MCHC 33.4 g/dl (32.0-36.0); PLATELET COUNT 265 10^3/uL (134-434); RBC 2.66 M/mm3 (3.60-5.2); RDW 13.9 % (11.6-15.6); WHITE BLOOD COUNT 7.2 K/mm3 (4.0-10.0)
[2023-12-31 09:05] LABS: MEAN PLT VOLUME 9.1 fl (7.5-11.1)
[2023-12-31 09:30] LABS: POTASSIUM 4.1 mmol/L (3.5-5.1)
[2023-12-31 09:34] LABS: CALCIUM 8.2 mg/dL (8.5-10.1)
[2023-12-31 09:35] LABS: ALBUMIN 2.3 g/dl (3.4-5.0); BLOOD UREA NITROGEN 7.5 mg/dL (7-18)
[2023-12-31 09:38] LABS: CREATININE 0.5 mg/dL (0.55-1.3)
[2023-12-31 09:40] LABS: BILIRUBIN,TOTAL 0.2 mg/dL (0.2-1); TOT PROT 5.2 g/dl (6.4-8.2)
[2023-12-31] MEDS: CEFTRIAXONE 1 GM in DEXTROSE 5%-WATER - 50 ML IVPB SCH (11:00)
[2023-12-31] MEDS: SODIUM CHLORIDE 1,000 ML IV STA (11:01)
[2023-12-31 12:28] VITALS: BMI 22.6
[2023-12-31] MEDS: ACETAMINOPHEN 325 MG TABLET (FP) PO PRN (14:49)
[2024-01-01 08:11] LABS: EOS % 1.2 % (0-4.5); HEMATOCRIT 21.8 % (32.4-45.2); HEMOGLOBIN 7.3 GM/dL (10.7-15.3); LYMPH % 37.1 % (8-40); MCH 27.5 pg (25.7-33.7); MCHC 33.4 g/dl (32.0-36.0); MEAN CELL VOLUME 82.3 fl (80-96); MEAN PLT VOLUME 9.2 fl (7.5-11.1); NEUT % 55.7 % (42.8-82.8); PLATELET COUNT 242 10^3/uL (134-434); RBC 2.64 M/mm3 (3.60-5.2); RDW 14.1 % (11.6-15.6); WHITE BLOOD COUNT 7.1 K/mm3 (4.0-10.0)
[2024-01-01 08:38] LABS: BLOOD UREA NITROGEN 4.3 mg/dL (7-18); CALCIUM 8.2 mg/dL (8.5-10.1)
[2024-01-01 08:41] LABS: CREATININE 0.5 mg/dL (0.55-1.3)
[2024-01-01] MEDS: IRON SUCROSE INJECTION 200 MG in SODIUM CHLORIDE 100 ML IVPB ONE (10:25)
[2024-01-01] MEDS: ASCORBIC ACID 500 MG TABLET (FP) PO SCH (10:27)
[2024-01-01] MEDS: PRENATAL VITAMINS W/ FOLIC ACID TABLET (FP) PO SCH (10:29)
[2024-01-01] MEDS ORDERED: ONDANSETRON *ODT* 4 MG TABLET SL PRN (12:24)
[2024-01-01] MEDS: FLUCONAZOLE 50 MG TABLET PO ONE (13:37)
[2024-01-01] MEDS: FERROUS SO4 325 MG TABLET (FP) PO SCH (18:30)
[2024-01-02] MEDS ORDERED: ACETAMINOPHEN 1000 MG/100 ML BAG IVPB ONE (00:57)
[2024-01-02] MEDS: ACETAMINOPHEN 1000 MG/100 ML BAG IVPB ONE (02:35)
[2024-01-02 08:50] LABS: HEMATOCRIT 22.7 % (32.4-45.2); HEMOGLOBIN 7.5 GM/dL (10.7-15.3); MCH 26.8 pg (25.7-33.7); MCHC 33.2 g/dl (32.0-36.0); MEAN CELL VOLUME 80.9 fl (80-96); MEAN PLT VOLUME 9.5 fl (7.5-11.1); PLATELET COUNT 268 10^3/uL (134-434); RDW 14.4 % (11.6-15.6)
[2024-01-02] MEDS: POLYETHYLENE GLYCOL (HEALTHYLAX) 3350 17 GM PACKET PO SCH (13:02)
[2024-01-02] MEDS: IRON SUCROSE INJECTION 200 MG in SODIUM CHLORIDE 100 ML IVPB ONE (13:02)
[2024-01-02 15:07] VITALS: BP 108/58; PULSE 104; RESP 18; TEMP 98.4
== END 2024-01-02 17:58 | disposition home or self-care (01) ==
LOC: JER 14:57 → JERBED 19:54 → J7W 23:26
PROVIDERS: ADMIT Internal Medicine; ATTEND Nurse Practitioner
PROC: 3E033NZ Introduction of Analgesics, Hypnotics, Sedatives into Peripheral Vein, Percutaneous Approach (ICD-10-PCS; principal; 2023-12-30)
PROC: 3E03329 Introduction of Other Anti-infective into Peripheral Vein, Percutaneous Approach (ICD-10-PCS; 2023-12-30)
PROC: 3E0337Z Introduction of Electrolytic and Water Balance Substance into Peripheral Vein, Percutaneous Approach (ICD-10-PCS; 2023-12-30)
PROC: 3E033GC Introduction of Other Therapeutic Substance into Peripheral Vein, Percutaneous Approach (ICD-10-PCS; 2023-12-30)
DX: N39.0 Urinary tract infection, site not specified (principal); O99.013 Anemia complicating pregnancy, third trimester; Z3A.29 29 weeks gestation of pregnancy; K59.00 Constipation, unspecified; R63.0 Anorexia; R11.2 Nausea with vomiting, unspecified; J45.909 Unspecified asthma, uncomplicated; K64.9 Unspecified hemorrhoids
CPT/HCPCS: 36415; 80048; 80053; 81003; 82550; 82728; 83540; 83550; 83735; 84100; 84466; 85025; 85027; 87086; 93005; 93010; 93306-TC; 96361; 96365; 96366; 96367; 96375; 99285-25; G0378; J0131; J1756

== ENCOUNTER 2024-01-15 13:53 | Emergency (ER) | payer OTHER ==
[2024-01-15] MEDS ORDERED: diphenhydrAMINE HCL 25 MG CAPSULE (FP) PO ONE (14:56)
[2024-01-15] MEDS: diphenhydrAMINE HCL 25 MG CAPSULE (FP) PO ONE (14:57)
[2024-01-15 15:08] LABS: HEMATOCRIT 26.8 % (32.4-45.2); HEMOGLOBIN 8.7 GM/dL (10.7-15.3); MCH 27.1 pg (25.7-33.7); MCHC 32.4 g/dl (32.0-36.0); MEAN CELL VOLUME 83.6 fl (80-96); MEAN PLT VOLUME 9.3 fl (7.5-11.1); PLATELET COUNT 254 10^3/uL (134-434); RDW 16.8 % (11.6-15.6); WHITE BLOOD COUNT 10.5 K/mm3 (4.0-10.0)
[2024-01-15 15:17] VITALS: BMI 24.8
[2024-01-15 15:31] LABS: POTASSIUM 4.2 mmol/L (3.5-5.1)
[2024-01-15 15:33] LABS: CALCIUM 8.7 mg/dL (8.5-10.1)
[2024-01-15 15:34] LABS: ALBUMIN 2.6 g/dl (3.4-5.0); BLOOD UREA NITROGEN 8.5 mg/dL (7-18)
[2024-01-15 15:37] LABS: CREATININE 0.5 mg/dL (0.55-1.3)
[2024-01-15 15:39] LABS: BILIRUBIN,TOTAL 0.2 mg/dL (0.2-1); TOT PROT 6.2 g/dl (6.4-8.2)
[2024-01-15 17:15] VITALS: BP 101/66; PULSE 85; RESP 20; TEMP 97.9
== END 2024-01-15 18:37 | disposition home or self-care (01) ==
LOC: JERFT 13:53 → JER 13:53
DX: O99.322 Drug use complicating pregnancy, second trimester (principal); R21 Rash and other nonspecific skin eruption; T50.Z95A Adverse effect of other vaccines and biological substances, initial encounter; Z3A.28 28 weeks gestation of pregnancy
CPT/HCPCS: 36415; 80053; 82542; 85027; 99283-25

== ENCOUNTER 2024-01-26 20:15 | Inpatient (IN) | payer OTHER ==
[2024-01-26] MEDS: ELECTROLYTE-148 SOLN 500 ML IV ONE (20:40)
[2024-01-26] MEDS ORDERED: TERBUTALINE SULFATE 1 MG/1 ML VIAL SQ ONE (21:09)
[2024-01-26 21:33] VITALS: RESP 20
[2024-01-26] MEDS: TERBUTALINE SULFATE 1 MG/1 ML VIAL SQ ONE (21:45)
[2024-01-26] MEDS ORDERED: AMPICILLIN SODIUM 2 GM VIAL ONE (22:06)
[2024-01-26] MEDS: AMPICILLIN - 2 GM in SODIUM CHLORIDE 100 ML IVPB SCH (22:15)
[2024-01-26] MEDS ORDERED: BETAMET ACET/BETAMET NA PH 30 MG/5 ML VIAL ONE (22:25)
[2024-01-26] MEDS: BETAMET ACET/BETAMET NA PH 30 MG/5 ML VIAL IM ONE (22:36)
[2024-01-26] MEDS: AZITHROMYCIN 500 MG TABLET PO ONE (23:20)
[2024-01-26] MEDS ORDERED: MAGNESIUM 4GM/H20 - 4 GM/100 ML IVPB IVPB ONE (23:31)
[2024-01-26 23:33] LABS: BASO % 0.6 % (0-2.0); HEMATOCRIT 21.7 % (32.4-45.2); HEMOGLOBIN 7.2 GM/dL (10.7-15.3); LYMPH % 32.2 % (8-40); MCHC 32.9 g/dl (32.0-36.0); MEAN CELL VOLUME 82.1 fl (80-96); MEAN PLT VOLUME 8.9 fl (7.5-11.1); MONO % 5.6 % (3.8-10.2); NEUT % 60.6 % (42.8-82.8); PLATELET COUNT 232 10^3/uL (134-434); RBC 2.65 M/mm3 (3.60-5.2); RDW 17.1 % (11.6-15.6); WHITE BLOOD COUNT 10.5 K/mm3 (4.0-10.0)
[2024-01-26] MEDS: MAGNESIUM 4GM/H20 - 4 GM/100 ML IVPB IVPB SCH (23:34)
[2024-01-26 23:49] LABS: INR 1.03 (0.83-1.09); PROTHROMBIN TIME (PATIENT) 11.6 SEC (9.7-13.0)
[2024-01-26 23:51] LABS: ACTIVATED PTT 28.6 SECONDS (25.2-36.5)
[2024-01-26 23:54] LABS: CHLORIDE 108 mmol/L (98-107); POTASSIUM 3.6 mmol/L (3.5-5.1); SODIUM 141 mmol/L (136-145)
[2024-01-26 23:55] LABS: CALCIUM 8.2 mg/dL (8.5-10.1)
[2024-01-26 23:56] LABS: ANION GAP 9 mmol/L (4-13); BLOOD UREA NITROGEN 11.2 mg/dL (7-18); CO2 24 mmol/L (21-32); GLUCOSE,RANDOM 107 mg/dL (74-106)
[2024-01-26 23:59] LABS: CREATININE 0.5 mg/dL (0.55-1.3)
[2024-01-27] MEDS ORDERED: MAGNESIUM SULFATE 20GM/500ML - 20 GM/500 ML INFUS.BAG ONE (00:12)
[2024-01-27] MEDS: MAGNESIUM SULFATE 20GM/500ML - 20 GM/500 ML INFUS.BAG IVPB SCH (00:15)
[2024-01-27 01:21] VITALS: BP 109/55; PULSE 120; TEMP 98.4
== END 2024-01-27 00:30 | disposition short-term general hospital (02) | DRG 563 ==
LOC: JDEL 20:15 → JLDR 23:00
PROVIDERS: ADMIT Obstetrics & Gynecology Obstetrics; ATTEND Obstetrics & Gynecology Obstetrics
DX: O60.03 Preterm labor without delivery, third trimester (principal); O42.913 Preterm premature rupture of membranes, unspecified as to length of time between rupture and onset of labor, third trimester; Z3A.32 32 weeks gestation of pregnancy
CPT/HCPCS: 36415; 76817-TC; 76819-TC; 80048; 85025; 85610; 85730; 86780; 86850; 86900; 86901; 87635; 96372

== ENCOUNTER 2024-05-01 10:47 | Emergency (ER) | payer OTHER ==
[2024-05-01 11:02] VITALS: BP 107/60; PULSE 93; RESP 18; TEMP 99; BMI 25.4
[2024-05-01 15:19] LABS: HIV INTERPRETATION NEGATIVE (NEGATIVE)
== END 2024-05-01 14:16 | disposition home or self-care (01) ==
LOC: JERFT 10:47
DX: L81.4 Other melanin hyperpigmentation (principal)
CPT/HCPCS: 36415; 86803; 87389; 99283-25

== ENCOUNTER 2024-09-08 17:37 | Emergency (ER) | payer OTHER ==
[2024-09-08 17:46] VITALS: BMI 22.6
[2024-09-08] MEDS ORDERED: ACETAMINOPHEN 325 MG TABLET (FP) ONE (20:21)
[2024-09-08] MEDS: ACETAMINOPHEN 325 MG TABLET (FP) PO ONE (20:42)
[2024-09-08 20:43] LABS: ABSOLUTE IMMATURE GRANULOCYTES 0.02 x10^3/uL (0.0-0.031); BASOPHILS # 0.11 x10^3/uL (0.01-0.08); EOSINOPHIL % 1.7 % (0.7-5.8); EOSINOPHILS # 0.13 x10^3/uL (0.04-0.36); HEMATOCRIT 23.3 % (34.1-44.9); HEMOGLOBIN 7.2 g/dL (11.2-15.7); MCHC 30.9 g/dl (32.2-35.5); MEAN CELL VOLUME 80.6 fl (79.4-94.8); MEAN PLT VOLUME 10.5 fl (9.4-12.3); MONOCYTE # 0.37 x10^3/uL (0.24-0.86); MONOCYTE % 4.9 % (4.7-12.5); PLATELET COUNT 363 x10^3/uL (182-369); RDW 14.5 % (12.1-16.5)
[2024-09-08 21:00] LABS: POTASSIUM 4.1 mmol/L (3.5-5.1)
[2024-09-08 21:02] LABS: ALBUMIN 3.6 g/dl (3.4-5.0); CALCIUM 8.5 mg/dL (8.5-10.1)
[2024-09-08 21:05] LABS: CREATININE 0.7 mg/dL (0.55-1.3)
[2024-09-08 21:07] LABS: BILIRUBIN,TOTAL 0.2 mg/dL (0.2-1); TOT PROT 6.6 g/dl (6.4-8.2)
[2024-09-08 21:49] LABS: PH,URINE 8.5 (5.0-8.0); URINE APPEARANCE CLEAR; URINE BILIRUBIN NEGATIVE (NEGATIVE); URINE COLOR YELLOW; URINE GLUCOSE (UA) NEGATIVE (NEGATIVE); URINE KETONE NEGATIVE (NEGATIVE); URINE LEUK ESTERASE NEGATIVE (NEGATIVE); URINE NITRITE NEGATIVE (NEGATIVE); URINE PROTEIN TRACE (NEGATIVE)
[2024-09-08 22:00] LABS: HCV DIAGNOSTIC IN-HOUSE W/RFLX NON-REACTIVE (NONREACTIVE)
[2024-09-08 22:01] LABS: HIV INTERPRETATION NEGATIVE (NEGATIVE)
[2024-09-09 00:51] VITALS: RESP 18; TEMP 98.7
[2024-09-09 04:11] VITALS: BP 105/61; PULSE 97
== END 2024-09-09 04:18 | disposition left against medical advice (07) ==
LOC: JER 17:37
DX: D64.9 Anemia, unspecified (principal); R10.30 Lower abdominal pain, unspecified; R30.0 Dysuria; L08.89 Other specified local infections of the skin and subcutaneous tissue; K62.5 Hemorrhage of anus and rectum; N92.0 Excessive and frequent menstruation with regular cycle; R94.31 Abnormal electrocardiogram [ECG] [EKG]
CPT/HCPCS: 36415; 36430; 80053; 81003; 82272; 82607; 82728; 82746; 83550; 84703; 85025; 85379; 86803; 86850; 86900; 86901; 86922; 87086; 87389; 93005; 93010; 99285-25; P9038; P9058

== ENCOUNTER 2024-11-15 17:11 | Observation (INO) | payer OTHER ==
[2024-11-15] MEDS: SODIUM CHLORIDE 0.9% 500 ML INFUS.BAG IV ONE (17:47)
[2024-11-15 17:56] LABS: ABSOLUTE IMMATURE GRANULOCYTES 0.01 x10^3/uL (0.0-0.031); BASOPHILS # 0.07 x10^3/uL (0.01-0.08); EOSINOPHIL % 0.9 % (0.7-5.8); EOSINOPHILS # 0.06 x10^3/uL (0.04-0.36); HEMATOCRIT 20.6 % (34.1-44.9); MCHC 28.2 g/dl (32.2-35.5); MEAN CELL VOLUME 69.1 fl (79.4-94.8); MEAN PLT VOLUME 11.2 fl (9.4-12.3); MONOCYTE # 0.32 x10^3/uL (0.24-0.86); MONOCYTE % 4.5 % (4.7-12.5); PLATELET COUNT 509 x10^3/uL (182-369); RDW 21.5 % (12.1-16.8)
[2024-11-15 18:08] LABS: HEMOGLOBIN 5.8 g/dL (11.2-15.7)
[2024-11-15 18:30] LABS: POTASSIUM 3.9 mmol/L (3.5-5.1)
[2024-11-15 18:32] LABS: ALBUMIN 4.2 g/dl (3.4-5.0); BLOOD UREA NITROGEN 10.8 mg/dL (7-18); CALCIUM 9.6 mg/dL (8.5-10.1)
[2024-11-15 18:36] LABS: CREATININE 0.9 mg/dL (0.55-1.3)
[2024-11-15 18:37] LABS: BILIRUBIN,TOTAL 0.3 mg/dL (0.2-1); TOT PROT 7.2 g/dl (6.4-8.2)
[2024-11-15 19:09] LABS: ARTERIAL BLD GAS O2 SATURATION 97.4 % (95-98); ARTERIAL BLOOD GAS BASE EXCESS -4.6 mmol/L (-2-2); ARTERIAL BLOOD GAS PO2 97.7 mmHg (80-100)
[2024-11-15 19:12] LABS: ALLENS TEST POSITIVE
[2024-11-15 19:16] LABS: INR 1.27 (0.83-1.09)
[2024-11-15] MEDS ORDERED: ONDANSETRON 4 MG/2 ML VIAL ONE (22:20)
[2024-11-15] MEDS: ONDANSETRON 4 MG/2 ML VIAL IVPUSH ONE (22:25)
[2024-11-15 22:42] LABS: PH,URINE 6.5 (5.0-8.0); URINE APPEARANCE CLEAR; URINE BILIRUBIN NEGATIVE (NEGATIVE); URINE COLOR YELLOW; URINE GLUCOSE (UA) NEGATIVE (NEGATIVE); URINE KETONE 1+ (NEGATIVE); URINE LEUK ESTERASE NEGATIVE (NEGATIVE); URINE NITRITE NEGATIVE (NEGATIVE); URINE PROTEIN NEGATIVE (NEGATIVE); URINE UROBILINOGEN 0.2 mg/dL (0.2-1.0)
[2024-11-15 22:49] LABS: METHADONE, UR NEGATIVE (NEGATIVE); OPIATES, URI NEGATIVE (NEGATIVE); PHENCYCLIDINE,URINE NEGATIVE (NEGATIVE); URINE BARBITURATES NEGATIVE (NEGATIVE); URINE BENZODIAZEPINES NEGATIVE (NEGATIVE)
[2024-11-15 23:01] LABS: COCAINE, UR NEGATIVE (NEGATIVE); URINE AMPHETAMINES NEGATIVE (NEGATIVE)
[2024-11-16] MEDS: ACETAMINOPHEN 1000 MG/100 ML BAG IVPB ONE (01:48)
[2024-11-16] MEDS ORDERED: ACETAMINOPHEN 1000 MG/100 ML BAG IVPB PRN (04:16)
[2024-11-16 04:33] LABS: ABSOLUTE IMMATURE GRANULOCYTES 0.02 x10^3/uL (0.0-0.031); EOSINOPHIL % 1.2 % (0.7-5.8); EOSINOPHILS # 0.09 x10^3/uL (0.04-0.36); HEMATOCRIT 25.2 % (34.1-44.9); HEMOGLOBIN 7.4 g/dL (11.2-15.7); MCHC 29.4 g/dl (32.2-35.5); MEAN CELL VOLUME 74.6 fl (79.4-94.8); MONOCYTE # 0.51 x10^3/uL (0.24-0.86); MONOCYTE % 6.5 % (4.7-12.5); PLATELET COUNT 340 x10^3/uL (182-369)
[2024-11-16] MEDS ORDERED: MAGNESIUM CITRATE 300 ML BOTTLE ONE (06:44)
[2024-11-16] MEDS: MAGNESIUM CITRATE 300 ML BOTTLE PO ONE (06:53)
[2024-11-16 07:00] LABS: MAGNESIUM 1.9 mg/dL (1.8-2.4)
[2024-11-16 07:03] LABS: PHOSPHOROUS 4.1 mg/dL (2.5-4.9)
[2024-11-16 07:04] LABS: ABSOLUTE IMMATURE GRANULOCYTES 0.02 x10^3/uL (0.0-0.031); BASOPHILS # 0.11 x10^3/uL (0.01-0.08); EOSINOPHIL % 1.2 % (0.7-5.8); EOSINOPHILS # 0.08 x10^3/uL (0.04-0.36); HEMATOCRIT 24.9 % (34.1-44.9); HEMOGLOBIN 7.5 g/dL (11.2-15.7); MCHC 30.1 g/dl (32.2-35.5); MEAN CELL VOLUME 74.3 fl (79.4-94.8); MEAN PLT VOLUME 10.7 fl (9.4-12.3); MONOCYTE # 0.46 x10^3/uL (0.24-0.86); MONOCYTE % 6.6 % (4.7-12.5); PLATELET COUNT 340 x10^3/uL (182-369); RDW 21.2 % (12.1-16.8)
[2024-11-16] MEDS ORDERED: PANTOPRAZOLE 40 MG TABLET PO ONE (10:41)
[2024-11-16] MEDS ORDERED: POLYETHYLENE GLYCOL (HEALTHYLAX) 3350 17 GM PACKET ONE (10:41)
[2024-11-16] MEDS ORDERED: ACETAMINOPHEN INJECTION 100 ML ONE (10:42)
[2024-11-16] MEDS: PANTOPRAZOLE 40 MG TABLET PO SCH (10:44)
[2024-11-16] MEDS: POLYETHYLENE GLYCOL (HEALTHYLAX) 3350 17 GM PACKET PO SCH (10:44)
[2024-11-16] MEDS: HYDROCORTISONE ACETATE 25 MG/SUPP.RECT RC SCH (10:45)
[2024-11-16 14:29] LABS: Reticulocyte % 0.69 % (0.5-1.7)
[2024-11-16 15:59] VITALS: BMI 25.0
[2024-11-16 20:08] LABS: HEMATOCRIT 24.9 % (34.1-44.9); HEMOGLOBIN 7.5 g/dL (11.2-15.7); MCHC 30.1 g/dl (32.2-35.5); MEAN CELL VOLUME 74.3 fl (79.4-94.8); MEAN PLT VOLUME 10.4 fl (9.4-12.3); PLATELET COUNT 333 x10^3/uL (182-369); RDW 20.4 % (12.1-16.8)
[2024-11-16] MEDS: DIVALPROEX NA *ER* EXTEND REL 500 MG TABLET.SA (FP) PO SCH (21:36)
[2024-11-16] MEDS: PRAMIPEXOLE DIHYDROCHLORIDE 0.125 MG TABLET PO SCH (21:36)
[2024-11-17 08:07] LABS: HEMOGLOBIN 7.3 g/dL (11.2-15.7)
[2024-11-17 08:09] LABS: HEMATOCRIT 24.4 % (34.1-44.9); MCHC 29.9 g/dl (32.2-35.5); MEAN CELL VOLUME 73.7 fl (79.4-94.8); MEAN PLT VOLUME 11.1 fl (9.4-12.3); PLATELET COUNT 316 x10^3/uL (182-369); RDW 21.1 % (12.1-16.8)
[2024-11-17] MEDS: PEG 3350/NA SULF BICARB CL/KCL 4000 ML SOLN.RECON PO ONE (16:16)
[2024-11-17] MEDS: BISACODYL 5 MG TABLET.DR (FP) PO ONE (16:18)
[2024-11-17 20:18] LABS: HEMATOCRIT 26.8 % (34.1-44.9); MCHC 29.9 g/dl (32.2-35.5); MEAN CELL VOLUME 73.6 fl (79.4-94.8); MEAN PLT VOLUME 10.9 fl (9.4-12.3); PLATELET COUNT 352 x10^3/uL (182-369); RDW 22.6 % (12.1-16.8)
[2024-11-18 07:49] LABS: ABSOLUTE IMMATURE GRANULOCYTES 0.01 x10^3/uL (0.0-0.031); BASOPHILS # 0.08 x10^3/uL (0.01-0.08); EOSINOPHIL % 2.8 % (0.7-5.8); EOSINOPHILS # 0.16 x10^3/uL (0.04-0.36); HEMATOCRIT 24.9 % (34.1-44.9); HEMOGLOBIN 7.5 g/dL (11.2-15.7); MCHC 30.1 g/dl (32.2-35.5); MEAN CELL VOLUME 73.2 fl (79.4-94.8); MEAN PLT VOLUME 11.1 fl (9.4-12.3); MONOCYTE # 0.32 x10^3/uL (0.24-0.86); MONOCYTE % 5.7 % (4.7-12.5); PLATELET COUNT 352 x10^3/uL (182-369); RDW 22.9 % (12.1-16.8)
[2024-11-18 08:26] LABS: INR 1.17 (0.83-1.09); PROTHROMBIN TIME (PATIENT) 12.9 SEC (9.7-13.0)
[2024-11-18 08:41] LABS: BILIRUBIN,TOTAL 0.5 mg/dL (0.2-1)
[2024-11-18 08:47] LABS: CALCIUM 9.3 mg/dL (8.5-10.1)
[2024-11-18 08:49] LABS: BLOOD UREA NITROGEN 6.9 mg/dL (7-18)
[2024-11-18 08:52] LABS: CREATININE 0.7 mg/dL (0.55-1.3)
[2024-11-18 08:53] LABS: ALBUMIN 3.3 g/dl (3.4-5.0); TOT PROT 5.8 g/dl (6.4-8.2)
[2024-11-18] MEDS: PEG 3350/NA SULF BICARB CL/KCL 4000 ML SOLN.RECON PO ONE (14:00)
[2024-11-18] MEDS: BISACODYL 5 MG TABLET.DR (FP) PO ONE ×2 (14:56→18:16)
[2024-11-18 20:52] LABS: ABSOLUTE IMMATURE GRANULOCYTES 0.02 x10^3/uL (0.0-0.031); BASOPHILS # 0.11 x10^3/uL (0.01-0.08); EOSINOPHIL % 2.8 % (0.7-5.8); HEMATOCRIT 28.6 % (34.1-44.9); HEMOGLOBIN 8.5 g/dL (11.2-15.7); MCHC 29.7 g/dl (32.2-35.5); MEAN CELL VOLUME 73.9 fl (79.4-94.8); MEAN PLT VOLUME 11.2 fl (9.4-12.3); MONOCYTE # 0.47 x10^3/uL (0.24-0.86); MONOCYTE % 6.6 % (4.7-12.5); PLATELET COUNT 385 x10^3/uL (182-369); RDW 23.7 % (12.1-16.8)
[2024-11-18] MEDS: TRIMETHOBENZAMIDE HCL 200MG/2ML INJ IM ONE (21:30)
[2024-11-19 07:34] LABS: ABSOLUTE IMMATURE GRANULOCYTES 0.02 x10^3/uL (0.0-0.031); BASOPHILS # 0.09 x10^3/uL (0.01-0.08); EOSINOPHIL % 3.9 % (0.7-5.8); EOSINOPHILS # 0.26 x10^3/uL (0.04-0.36); HEMATOCRIT 25.9 % (34.1-44.9); HEMOGLOBIN 7.8 g/dL (11.2-15.7); MCHC 30.1 g/dl (32.2-35.5); MEAN CELL VOLUME 73.2 fl (79.4-94.8); MEAN PLT VOLUME 10.8 fl (9.4-12.3); MONOCYTE # 0.48 x10^3/uL (0.24-0.86); MONOCYTE % 7.2 % (4.7-12.5); PLATELET COUNT 352 x10^3/uL (182-369); RDW 23.7 % (12.1-16.8)
[2024-11-19 07:45] LABS: INR 1.23 (0.83-1.09); PROTHROMBIN TIME (PATIENT) 13.5 SEC (9.7-13.0)
[2024-11-19 07:56] LABS: CALCIUM 9.4 mg/dL (8.5-10.1); POTASSIUM 3.7 mmol/L (3.5-5.1)
[2024-11-19 07:57] LABS: ALBUMIN 3.4 g/dl (3.4-5.0); BLOOD UREA NITROGEN 5.8 mg/dL (7-18)
[2024-11-19 08:01] LABS: CREATININE 0.7 mg/dL (0.55-1.3)
[2024-11-19 08:02] LABS: BILIRUBIN,TOTAL 0.6 mg/dL (0.2-1)
[2024-11-19] MEDS: BISACODYL 5 MG TABLET.DR (FP) PO ONE (17:29)
[2024-11-19] MEDS: POLYETHYLENE GLYCOL 3350 255 GM BTL PO ONE (17:31)
[2024-11-20 07:30] LABS: ABSOLUTE IMMATURE GRANULOCYTES 0.02 x10^3/uL (0.0-0.031); EOSINOPHIL % 3.4 % (0.7-5.8); EOSINOPHILS # 0.21 x10^3/uL (0.04-0.36); HEMATOCRIT 27.5 % (34.1-44.9); HEMOGLOBIN 8.3 g/dL (11.2-15.7); MCHC 30.2 g/dl (32.2-35.5); MEAN CELL VOLUME 73.5 fl (79.4-94.8); MEAN PLT VOLUME 10.4 fl (9.4-12.3); MONOCYTE # 0.45 x10^3/uL (0.24-0.86); MONOCYTE % 7.3 % (4.7-12.5); PLATELET COUNT 336 x10^3/uL (182-369); RDW 24.3 % (12.1-16.8)
[2024-11-20 07:54] LABS: POTASSIUM 3.8 mmol/L (3.5-5.1)
[2024-11-20 07:56] LABS: CALCIUM 9.6 mg/dL (8.5-10.1)
[2024-11-20 07:57] LABS: ALBUMIN 3.4 g/dl (3.4-5.0); BLOOD UREA NITROGEN 6.2 mg/dL (7-18)
[2024-11-20 08:00] LABS: CREATININE 0.7 mg/dL (0.55-1.3)
[2024-11-20 08:01] LABS: BILIRUBIN,TOTAL 0.7 mg/dL (0.2-1)
[2024-11-20 08:07] LABS: INR 1.21 (0.83-1.09); PROTHROMBIN TIME (PATIENT) 13.3 SEC (9.7-13.0)
[2024-11-20 10:28] VITALS: RESP 16; TEMP 98
[2024-11-20 10:41] VITALS: BP 102/58; PULSE 76
[2024-11-21 20:06] LABS: GLIADIN ANTIBODY IGA 3 units (0-19); TRANSGLUTAMINASE IGG 4 U/mL (0-5)
== END 2024-11-20 14:45 | disposition home or self-care (01) ==
LOC: JER 17:11 → JERBED 18:09 → INTOOBSV 18:09 → UNDOADMOB 18:09 → JERBED 11-16 11:39 → J4W 11-16 11:39 → JERBED 11-16 15:53
PROVIDERS: ADMIT Internal Medicine; ATTEND Internal Medicine
PROC: 30233N1 Transfusion of Nonautologous Red Blood Cells into Peripheral Vein, Percutaneous Approach (ICD-10-PCS; principal; 2024-11-16)
PROC: 3E033NZ Introduction of Analgesics, Hypnotics, Sedatives into Peripheral Vein, Percutaneous Approach (ICD-10-PCS; 2024-11-16)
PROC: 3E033GC Introduction of Other Therapeutic Substance into Peripheral Vein, Percutaneous Approach (ICD-10-PCS; 2024-11-16)
PROC: 3E0337Z Introduction of Electrolytic and Water Balance Substance into Peripheral Vein, Percutaneous Approach (ICD-10-PCS; 2024-11-16)
PROC: 3E023GC Introduction of Other Therapeutic Substance into Muscle, Percutaneous Approach (ICD-10-PCS; 2024-11-16)
PROC: 0DJD8ZZ Inspection of Lower Intestinal Tract, Via Natural or Artificial Opening Endoscopic (ICD-10-PCS; 2024-11-19)
PROC: 0DB98ZX Excision of Duodenum, Via Natural or Artificial Opening Endoscopic, Diagnostic (ICD-10-PCS; 2024-11-20)
PROC: 0DB78ZX Excision of Stomach, Pylorus, Via Natural or Artificial Opening Endoscopic, Diagnostic (ICD-10-PCS; 2024-11-20)
PROC: 0DB68ZX Excision of Stomach, Via Natural or Artificial Opening Endoscopic, Diagnostic (ICD-10-PCS; 2024-11-20)
DX: R55 Syncope and collapse (principal); D50.9 Iron deficiency anemia, unspecified; G43.909 Migraine, unspecified, not intractable, without status migrainosus; K64.8 Other hemorrhoids; N92.0 Excessive and frequent menstruation with regular cycle; K64.4 Residual hemorrhoidal skin tags; N83.202 Unspecified ovarian cyst, left side; N83.201 Unspecified ovarian cyst, right side
CPT/HCPCS: 36415; 36430; 36600; 70450-TC; 71275-TC; 76830-TC; 80053; 80307; 81003; 82375; 82728; 82784; 82803; 83516; 83540; 83550; 83605; 83615; 83735; 84100; 84484; 84703; 85025; 85027; 85379; 85610; 86850; 86900; 86901; 86922; 87086; 88305-TC; 88342-TC; 93005; 93010; 93306-TC; 93880-TC; 96372; 96374; 96375; 99285-25; G0378; P9038; P9058; Q9967